=== PATIENT | male | born 1970 | race Caucasian/White ===

== ENCOUNTER → 2019-09-30 | Outpatient (CLI) | payer BC ==
--- NOTE | 2019-09-30 08:57 | REP ---
MRI cervical spine: 2019. Indication: Cervical radiculopathy. Technique: Multiplanar short and long TR sequences of the cervical spine were obtained without IV Gadolinium. Comparison: None. Findings: The diagnostic quality of the study is compromised by patient motion. There is straightening of the cervical lordosis. No worrisome marrow or cord signal is detected. The craniocervical junction is unremarkable. The vertebral artery flow voids are also unremarkable. C2/C3, C3/C4 and C4/C5: There is no focal disc herniation or significant spinal canal / neural foraminal narrowing. C5/C6: There is an asymmetric disc and spur complex more pronounced on the right with moderate to severe right neural foraminal narrowing. There is effacement of the ventral thecal sac. The left neural foramen is patent. C6/C7: Diffuse disc bulge is present with mild spinal canal narrowing. Right greater than left uncovertebral proliferation is present with moderate to severe right and mild left neural foraminal narrowing. C7/C1: There is no focal disc herniation or significant spinal canal / neural foraminal narrowing. Impression: Multilevel degenerative sequelae as described, more pronounced on the right. Please correlate with radicular level. Electronically Signed by Solomon Gu DO 09/30/2019 08:50 A
== END ==
LOC: M RAD 06:39
PROVIDERS: ATTEND Orthopaedic Surgery
DX: M50.123 Cervical disc disorder at C6-C7 level with radiculopathy (principal); M46.02 Spinal enthesopathy, cervical region

== ENCOUNTER → 2022-03-06 | Outpatient (REF) ==
[2022-03-06 13:31] LABS: RSV AMPLIFICATION NEGATIVE (NEGATIVE)
== END ==
LOC: M LABSMTC 10:25
PROVIDERS: ATTEND Family Medicine
DX: Z20.828 Contact with and (suspected) exposure to other viral communicable diseases (principal)